=== PATIENT | male | born 1995 | race Caucasian/White ===

== ENCOUNTER 2016-12-23 17:40 | Emergency (ER) | payer BC ==
[2016-12-23] MEDS ORDERED: NS 1,000 ML IV ONE ×2 (17:59→18:36)
[2016-12-23] MEDS ORDERED: ONDANSETRON 4 MG/2 ML VIAL IVP ONE (17:59)
--- NOTE | 2016-12-23 18:12 | EDPHY ---
H & P Stated Complaint: cough, fevers, vomitting for a week Source: Patient, Family Exam Limitations: No limitations - Personal History Current Tetanus/Diphtheria Vaccine: Yes Current Tetanus Diphtheria and Acellular Pertussis (TDAP): Yes Tetanus Vaccine Date: < 10 years - Medical/Surgical History Hx Asthma: No Hx Chronic Respiratory Disease: No Hx Diabetes: No Hx Cardiac Disease: No Hx Renal Disease: No Hx Cirrhosis: No Hx Alcoholism: No Hx HIV/AIDS: No Hx Splenectomy or Spleen Trauma: No Other PMH: none reported - Social History Smoking Status: Never smoked HPI/ROS: CHIEF COMPLAINT: Fever, cough, vomiting HISTORY OF PRESENT ILLNESS: Patient complains of 3 days history of cough, fever and vomiting. This was rapid onset. Constant duration. He thinks that he has the flu as he has a friend who had flu-like symptoms recently. He has no chest pain but he does have a persistent cough. Occasionally productive but mostly nonproductive. Mild headache with the fever. No neck pain or stiffness. No abdominal pain. Some vomiting with solid intake. No vomiting with liquid intake. Fever has been reportedly 102-108 degrees F by oral digital thermometer. It does respond to ibuprofen. No recent travel or surgery. No other known sick contacts. He was seen by his primary care physician yesterday. He obtain a chest x-ray and they were notified that the chest x-ray was within normal limits. He also had a pertussis screen sent is pending. No other associated complaints or modifying factors. REVIEW OF SYSTEMS: Ten systems reviewed and are negative unless otherwise noted in the HPI PERTINENT MEDICAL HISTORY: Denies any medical history EXAMINATION General Appearance: Alert, no distress Head: normocephalic, atraumatic Eyes: Pupils equal and round, no conjunctival pallor or injection ENT, Mouth: Mucous membranes moist. Uvula midline. No erythema or edema. Neck: Normal inspection, supple, non-tender. Painless range of motion all planes. No meningismus or rigidity Respiratory: Lungs have scattered rhonchi. No wheezing. No crackles. No diminishment. No consolidation. No retractions. Cardiovascular: Tachycardic rate with regular rhythm. No murmur. Gastrointestinal: Abdomen is soft and nontender Back: non-tender, no bony abnormalities Neurological: A&O, nonfocal, normal gait GCS 15. Skin: Warm and dry, no rash. No petechiae or purpura Extremities: Nontender, no pedal edema Psychiatric: Mood and affect normal DIFFERENTIAL DIAGNOSES: Including but not limited to influenza, mono, viral bronchitis, bacterial bronchitis, community-acquired pneumonia, viral illness, lower respiratory infection, upper respiratory infection MDM: 6:12 p.m. Cough, fever nausea and vomiting over the past 1 week. The patient feels that he has the flu as he had friend with the flu. He has been taking herbal medications from his physician at [facility] without improvement. Vital signs reveal mild tachycardia. Vital signs are otherwise well within normal limits. He had a chest x-ray performed yesterday at his primary care physician which was read normal by the radiologist. Lungs are clear by auscultation. Laboratory studies are pending. 7:02 p.m. Laboratory studies reveal no leukocytosis. There is mild thrombocytopenia, creatinine is 1.4. Laboratory studies suggest viral etiology. [place] screen is negative. The respiratory pathogen panel is pending at this time. I have re- examined the patient. He still in no acute distress mild tachycardia. Oxygenation is above 94% on room air. 7:45 p.m. I have re-evaluated the patient. He is occasionally hypoxic down to 88% on room air after exertion. He does improve with rest and 2 L nasal cannula at times. We provided DuoNeb treatment for him. 8:00 p.m. He is feeling much better after the DuoNeb treatment. Oxygenation is approximately 90-92% on room air. RPP is pending. 8:38 p.m. I have re-evaluated the patient again. He remained stable. He is asking to be discharged home. His tachycardia has resolved. His oxygenation is 90-94% on room air. We discussed the positive adenovirus on the RPP. No other positive findings. Discharged home with albuterol inhaler, instructions to rest, increase fluid intake, ibuprofen or Aleve. Follow up with wax molder over the next 1-2 days. Return here for worsening symptoms, any neck pain or stiffness or persistent headache. He and his stepfather bedside are comfortable with this plan. He is discharged home stable condition. SUPERVISION: Case discussed with Dr. Andre Rueda ([facility]) Constitutional: Initial Vital Signs Temperature (C) 98.4 F 12/23/16 17:41 Heart Rate 117 H 12/23/16 17:41 Respiratory Rate 20 12/23/16 17:41 Blood Pressure 124/69 H 12/23/16 17:41 O2 Sat (%) 93 12/23/16 17:41 O2 Delivery Mode Room Air Allergies/Adverse Reactions: No Known Allergies Allergy (Unverified 12/23/16 17:41) Home Medications: Medication Instructions Recorded Albuterol [Proventil Inhaler HFA 1 - 2 puffs IH Q4H PRN #1 mdi 12/23/16 (*)] Medical Decision Making - Diagnostics Imaging Results: Imaging Impressions Chest X-Ray 12/23/16 19:49 Impression: Normal. Other Provider: INDEPENDENT PHYSICIAN DOCUMENTATION I evaluated and participated in the management of the patient. I also evaluated the patient independently. My co-signature indicates that I have reviewed this chart and I agree with the findings and plan of care as documented. My personal H&P findings include: The patient presents to the ED with fever, cough, vomiting and diarrhea for the past 3 days. The patient reportedly saw his primary care provider yesterday who performed a chest x-ray which was negative. The patient has been taken Tylenol and ibuprofen. The patient developed a fever today 108 degrees by the family's report which prompted the ED visit. The patient states that over the past day his cough is not significantly changed, he continues to have fairly significant myalgias and generalized fatigue. PHYSICAL EXAMINATION General Appearance: Alert, appears fatigued, no acute distress Eyes: Pupils equal and round no pallor or injection ENT, Mouth: Mucous membranes moist Respiratory: Occasional expiratory wheezing, otherwise lungs clear to auscultation Cardiovascular: Mild tachycardia with heart rate of 100 Gastrointestinal: Abdomen is soft and nontender, no masses, bowel sounds normal Neurological: 5/5 strength noted all 4 extremities Skin: Warm and dry, no rashes Musculoskeletal: Neck is supple nontender specifically without evidence of meningeal symptoms Extremities: symmetrical, full range of motion (Ignacio Rueda) - Data Points Laboratory Results: Laboratory Results 12/23/16 18:00 12/23/16 18:00 12/23/16 12/23/16 12/23/16 19:45 18:00 18:00 WBC RBC Hgb Hct MCV MCH MCHC RDW Plt Count MPV Neut % (Auto) Lymph % (Auto) [place] % (Auto) Eos % (Auto) Baso % (Auto) Nucleat RBC Rel Count Absolute Neuts (auto) Absolute Lymphs (auto) Absolute Monos (auto) Absolute Eos (auto) Absolute Basos (auto) Absolute Nucleated RBC Immature Gran % Immature Gran # Sodium 131 mEq/L L mEq/L (134-144) Potassium 3.9 mEq/L mEq/L (3.5-5.2) Chloride 94 mEq/L L mEq/L (97-110) Carbon Dioxide 21 mEq/l L mEq/l (22-31) Anion Gap 16 mEq/L mEq/L (8-16) BUN 15 mg/dL mg/dL (7-23) Creatinine 1.4 mg/dL H mg/dL (0.7-1.3) Estimated GFR > 60 Glucose 119 mg/dL H mg/dL (70-100) Calcium 8.9 mg/dL mg/dL (8.5-10.4) Total Bilirubin 0.7 mg/dL mg/dL (0.1-1.4) Conjugated Bilirubin 0.5 mg/dL mg/dL (0.0-0.5) Unconjugated Bilirubin 0.2 mg/dL mg/dL (0.0-1.1) AST 36 IU/L IU/L (17-59) ALT 31 IU/L IU/L (21-72) Alkaline Phosphatase 50 IU/L IU/L (38-126) Total Protein 7.4 g/dL g/dL (6.3-8.2) Albumin 4.6 g/dL g/dL (3.5-5.0) Lipase 61.0 IU/L IU/L (23-300) Urine Color PALE YELLOW Urine Appearance CLEAR Urine pH 5.0 (5.0-7.5) Ur Specific [place] 1.005 (1.002-1.030) Urine Protein NEGATIVE (NEGATIVE) Urine Ketones NEGATIVE (NEGATIVE) Urine Blood NEGATIVE (NEGATIVE) Urine Nitrate NEGATIVE (NEGATIVE) Urine Bilirubin NEGATIVE (NEGATIVE) Urine Urobilinogen NEGATIVE EU EU (0.2-1.0) Ur Leukocyte Esterase NEGATIVE (NEGATIVE) Urine RBC NONE SEEN /hpf /hpf (0-3) Urine WBC 1-3 /hpf /hpf (0-3) Ur Epithelial Cells NONE SEEN /lpf /lpf (NONE-1+) Urine Bacteria TRACE /hpf H /hpf (NONE SEEN) Urine Mucus TRACE /lpf /lpf (NONE-1+) Urine Glucose NEGATIVE (NEGATIVE) Monoscreen NEGATIVE (NEGATIVE) 12/23/16 18:00 WBC 5.10 10^3/uL 10^3/uL (3.80-9.50) RBC 5.62 10^6/uL 10^6/uL (4.40-6.38) Hgb 16.6 g/dL g/dL (13.7-17.5) Hct 47.5 % % (40.0-51.0) MCV 84.5 fL fL (81.5-99.8) MCH 29.5 pg pg (27.9-34.1) MCHC 34.9 g/dL g/dL (32.4-36.7) RDW 12.2 % % (11.5-15.2) Plt Count 73 10^3/uL L 10^3/uL (150-400) MPV 11.7 fL fL (8.7-11.7) Neut % (Auto) 67.7 % % (39.3-74.2) Lymph % (Auto) 19.2 % % (15.0-45.0) [place] % (Auto) 12.7 % % (4.5-13.0) Eos % (Auto) 0.0 % L % (0.6-7.6) Baso % (Auto) 0.2 % L % (0.3-1.7) Nucleat RBC Rel Count 0.0 % % (0.0-0.2) Absolute Neuts (auto) 3.45 10^3/uL 10^3/uL (1.70-6.50) Absolute Lymphs (auto) 0.98 10^3/uL L 10^3/uL (1.00-3.00) Absolute Monos (auto) 0.65 10^3/uL 10^3/uL (0.30-0.80) Absolute Eos (auto) 0.00 10^3/uL L 10^3/uL (0.03-0.40) Absolute Basos (auto) 0.01 10^3/uL L 10^3/uL (0.02-0.10) Absolute Nucleated RBC 0.00 10^3/uL 10^3/uL (0-0.01) Immature Gran % 0.2 % % (0.0-1.1) Immature Gran # 0.01 10^3/uL 10^3/uL (0.00-0.10) Sodium Potassium Chloride Carbon Dioxide Anion Gap BUN Creatinine Estimated GFR Glucose Calcium Total Bilirubin Conjugated Bilirubin Unconjugated Bilirubin AST ALT Alkaline Phosphatase Total Protein Albumin Lipase Urine Color Urine Appearance Urine pH Ur Specific [place] Urine Protein Urine Ketones Urine Blood Urine Nitrate Urine Bilirubin Urine Urobilinogen Ur Leukocyte Esterase Urine RBC Urine WBC Ur Epithelial Cells Urine Bacteria Urine Mucus Urine Glucose Monoscreen Microbiology Results: MICROBIOLOGY 12/23/16 18:40 Nasal, Sinus - Swab Respiratory Panel (PCR) - Final Adenovirus Medications Given: Discontinued Medications Acetaminophen (Tylenol 160mg/5ml Oral Liquid) 1,000 mg PO EDNOW ONE Stop: 12/23/16 18:54 Last Admin: 12/23/16 18:59 Dose: 1,000 mg Albuterol Sulfate (Proventil Inh Prepack) 1 mdi TAKEHOME EDNOW ONE Stop: 12/23/16 20:47 Last Admin: 12/23/16 20:57 Dose: 1 mdi Albuterol/Ipratropium (Duoneb) 3 ml IH EDNOW ONE Stop: 12/23/16 19:12 Last Admin: 12/23/16 19:14 Dose: 3 ml Sodium Chloride (Ns) 1,000 mls @ 0 mls/hr IV ONCE ONE; Wide Open PRN Reason: Protocol Stop: 12/23/16 18:00 Last Admin: 12/23/16 18:00 Dose: 1,000 mls Sodium Chloride (Ns) 1,000 mls @ 0 mls/hr IV ONCE ONE; Wide Open PRN Reason: Protocol Stop: 12/23/16 18:37 Last Admin: 12/23/16 18:38 Dose: 1,000 mls Sodium Chloride (Ns) 1,000 mls @ 0 mls/hr IV ONCE ONE; Wide Open PRN Reason: Protocol Stop: 12/23/16 18:39 Last Admin: 12/23/16 19:32 Dose: 1,000 mls Ondansetron HCl (Zofran) 4 mg IVP EDNOW ONE Stop: 12/23/16 18:00 Last Admin: 12/23/16 20:50 Dose: Not Given Departure - Departure Disposition: Home, Routine, Self-Care Clinical Impression: Adenovirus infection Acute bronchitis Qualifiers: Bronchitis organism: other organism Qualified Code(s): J20.8 - Acute bronchitis due to other specified organisms Vomiting Qualifiers: Vomiting type: unspecified Vomiting Intractability: non-intractable Nausea presence: with nausea Qualified Code(s): R11.2 - Nausea with vomiting, unspecified Condition: Good Instructions: Albuterol (By breathing), Acute Bronchitis (ED), How to Use a Metered-Dose Inhaler and a Spacer (ED) Additional Instructions: Rest, increase fluid intake, albuterol inhaler as needed as discussed. Follow up with primary care physician in the next 1-2 days. Return here for worsening symptoms as discussed Referrals: Ubaldo Denny MD [Primary Care Provider] - As per Instructions Prescriptions: Albuterol [Proventil Inhaler HFA (*)] 1 - 2 puffs IH Q4H PRN #1 mdi PRN Reason: Short Of Breath/Dyspnea
[2016-12-23 18:13] LABS: % IMMATURE GRANULYOCYTES 0.2 % (0.0-1.1); ABSOLUTE IMMATURE GRANULOCYTES 0.01 10^3/uL (0.00-0.10); ADD DIFF? NO; ADD MORPH? NO; ADD SCAN? NO; ATYPICAL LYMPHOCYTE FLAG 40 (0-99); FRAGMENT RBC FLAG 0 (0-99); HEMATOCRIT 47.5 % (40.0-51.0); HEMOGLOBIN 16.6 g/dL (13.7-17.5); LEFT SHIFT FLG 10 (0-99); LIPEMIA HEMOLYSIS FLAG 90 (0-99); MEAN CELL HEMOGLOBIN 29.5 pg (27.9-34.1); MEAN CELL HEMOGLOBIN CONCENTR. 34.9 g/dL (32.4-36.7); MEAN CELL VOLUME 84.5 fL (81.5-99.8); MEAN PLATELET VOLUME 11.7 fL (8.7-11.7); PLATELET CLUMPS FLAG 0 (0-99); PLATELET COUNT 73 10^3/uL (150-400); RED BLOOD CELL COUNT 5.62 10^6/uL (4.40-6.38); RED CELL DISTRIBUTION WIDTH 12.2 % (11.5-15.2)
[2016-12-23 18:24] LABS: ALANINE AMINOTRANSFERASE 31 IU/L (21-72); ALBUMIN 4.6 g/dL (3.5-5.0); ALKALINE PHOSPHATASE 50 IU/L (38-126); ANION GAP 16 mEq/L (8-16); ASPARTATE AMINOTRANSFERASE 36 IU/L (17-59); BILIRUBIN,TOTAL 0.7 mg/dL (0.1-1.4); BILIRUBIN-CONJUGATED 0.5 mg/dL (0.0-0.5); BILIRUBIN-UNCONJUGATED 0.2 mg/dL (0.0-1.1); CALCIUM 8.9 mg/dL (8.5-10.4); CARBON DIOXIDE 21 mEq/l (22-31); CHLORIDE 94 mEq/L (97-110); CREATININE 1.4 mg/dL (0.7-1.3); GLOMERULAR FILTRATION RATE > 60; GLUCOSE 119 mg/dL (70-100); POTASSIUM 3.9 mEq/L (3.5-5.2); SODIUM 131 mEq/L (134-144); TOTAL PROTEIN 7.4 g/dL (6.3-8.2)
[2016-12-23 18:39] VITALS: TEMP 100.2
[2016-12-23] MEDS ORDERED: ACETAMINOPHEN 160 MG/5 ML UDCUP PO ONE (18:53)
[2016-12-23] MEDS: NS 1,000 ML IV ONE ×2 (18:53→19:32)
[2016-12-23] MEDS ORDERED: ACETAMINOPHEN 500 MG TAB ONE (18:55)
[2016-12-23] MEDS ORDERED: IPRATROPIUM/ALBUTEROL 3 ML DEYVIAL IH ONE (19:11)
[2016-12-23] MEDS ORDERED: IPRATROPIUM/ALBUTEROL 3 ML DEYVIAL ONE (19:12)
[2016-12-23 20:05] LABS: BACTERIA TRACE /hpf (NONE SEEN); COLOR PALE YELLOW; LEUKOCYTE ESTERASE,URINE NEGATIVE (NEGATIVE); MUCUS TRACE /lpf (NONE-1+); NITRITE,URINE NEGATIVE (NEGATIVE)
[2016-12-23 20:06] LABS: RBC,URINE NONE SEEN /hpf (0-3)
[2016-12-23] MEDS ORDERED: ALBUTEROL INH PREPACK MDI TAKEHOME ONE (20:46)
[2016-12-23 21:06] VITALS: BP 111/54; PULSE 81; RESP 16; O2SAT 93
== END 2016-12-23 21:05 | disposition home or self-care (01) ==
DX: B34.0 Adenovirus infection, unspecified (principal); J20.9 Acute bronchitis, unspecified; R11.10 Vomiting, unspecified